=== PATIENT | female | born 1950 ===

== ENCOUNTER 2017-06-07 09:37 | Emergency (ER) | payer OTHER ==
[2017-06-07 09:53] VITALS: BMI 22.6
[2017-06-07 10:07] VITALS: PULSE 77; O2SAT 99
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
--- NOTE | 2017-06-07 11:36 | RAD ---
HISTORY: COMPARISON: 10/22/2013. TECHNIQUE: Chest PA and lateral FINDINGS: LINES AND TUBES: None. LUNG AND PLEURA: The lungs are well inflated and clear. HEART AND MEDIASTINUM: The heart is not enlarged. The hilar and mediastinal contours are within normal limits. SKELETAL STRUCTURES: The bony structures are within normal limits for the patient's age. VISUALIZED UPPER ABDOMEN: Normal. OTHER FINDINGS: None. IMPRESSION: No acute findings. Specifically, no evidence of pneumothorax.
[2017-06-07 11:52] VITALS: BP 132/75; RESP 20; TEMP 98.1
--- NOTE | 2017-06-07 15:46 | CARD ---
APPROVED REPORT EKG Measurement Heart [id number] <Conclusion> Normal sinus rhythm Minimal voltage criteria for LVH, may be normal variant Nonspecific T wave abnormality Abnormal ECG
== END 2017-06-07 11:57 | disposition home or self-care (01) ==
LOC: ED 09:37
DX: S20.219A Contusion of unspecified front wall of thorax, initial encounter (principal); Y04.2XXA Assault by strike against or bumped into by another person, initial encounter; Y92.238 Other place in hospital as the place of occurrence of the external cause; Y99.0 Civilian activity done for income or pay

== ENCOUNTER 2018-08-16 20:39 | Observation (INO) | payer MEDICARE, OTHER ==
[2018-08-16] MEDS ORDERED: Sodium Chloride 0.9% 1,000 ML IV STA (21:21)
--- NOTE | 2018-08-16 21:23 | ED PDOC ---
Arrival/HPI - General Chief Complaint: Abdominal Pain Time Seen by Provider: 08/16/18 20:40 Historian: Patient - History of Present Illness Narrative History of Present Illness (Text): 08/16/18 21:10 Pablo Robert is a 68 year old female, whose past medical history includes hypertension, Stage 1 ovarian cancer status post hysterectomy, oopherectomy, partial colectomy, cholecystectomy, and gastric ulcer, who presents to the ED complaining of abdominal pain since 15:00 after eating at restaurant. Patient reports associated nausea and multiple episodes of vomiting. Patient states she took Protonix earlier this afternoon, but vomited shortly after. Patient denies any fever, chills, chest pain, shortness of breath, diarrhea, urinary symptoms, back pain, neck pain, headache, dizziness, or any other complaints. Symptom Onset: Gradual Symptom Course: Unchanged Activities at Onset: Light Context: Home Past Medical History - Provider Review Nursing Documentation Reviewed: Yes - Infectious Disease Hx of Infectious Diseases: None - Reproductive Menopause: Yes - Cardiac Hx Cardiac Disorders: Yes Hx Hypertension: Yes - Pulmonary Hx Respiratory Disorders: No - Genitourinary/Gynecological Hx Ovarian Cancer: Yes - Psychiatric Hx Psychophysiologic Disorder: No Hx Substance Use: No - Surgical History Hx Cholecystectomy: Yes Hx Hysterectomy: Yes Other/Comment: partial colectomy - Anesthesia Hx Anesthesia: Yes Hx Anesthesia Reactions: No - Suicidal Assessment Feels Threatened In Home Enviroment: No Family/Social History - Physician Review Nursing Documentation Reviewed: Yes Family/Social History: Unknown Family HX Smoking Status: Never Smoked Hx Alcohol Use: No Hx Substance Use: No Allergies/Home Meds Allergies/Adverse Reactions: Allergies No Known Allergies Allergy (Verified 01/13/13 18:14) Home Medications: Home Meds Medication Instructions Recorded Confirmed Valsartan [Diovan] 160 mg PO DAILY 01/13/13 08/16/18 Ursodiol [Actigall] 1 tab PO WED 06/07/17 08/16/18 MetFORMIN [glucOPHAGE] 500 mg PO DAILY 08/16/18 08/16/18 Simvastatin [Zocor] 20 mg PO DAILY 08/16/18 08/16/18 amLODIPine [Norvasc] 10 mg PO DAILY 08/16/18 08/16/18 Review of Systems - Physician Review All systems were reviewed & negative as marked: Yes - Review of Systems Constitutional: Normal. absent: Fevers Eyes: Normal ENT: Normal Respiratory: Normal. absent: SOB, Cough Cardiovascular: Normal. absent: Chest Pain Gastrointestinal: Abdominal Pain, Nausea, Vomiting. absent: Diarrhea Genitourinary Female: Normal. absent: Dysuria, Frequency, Hematuria, Urine Output Changes Musculoskeletal: Normal. absent: Back Pain, Neck Pain Skin: Normal. absent: Rash Neurological: Normal. absent: Headache, Dizziness Endocrine: Normal Hemo/Lymphatic: Normal Psychiatric: Normal Physical Exam Vital Signs Reviewed: Yes Vital Signs Temp Pulse Resp BP Pulse Ox 08/16/18 20:43 98.4 F 104 H 18 129/81 96 Temperature: Afebrile Blood Pressure: Normal Pulse: Regular Respiratory Rate: Normal Appearance: Positive for: Well-Appearing, Non-Toxic, Comfortable Pain Distress: None Mental Status: Positive for: Alert and Oriented X 3 - Systems Exam Head: Present: Atraumatic, Normocephalic Pupils: Present: PERRL Extroacular Muscles: Present: EOMI Conjunctiva: Present: Normal Mouth: Present: Moist Mucous Membranes Neck: Present: Normal Range of Motion Respiratory/Chest: Present: Clear to Auscultation, Good Air Exchange. No: Respiratory Distress, Accessory Muscle Use Cardiovascular: Present: Regular Rate and Rhythm, Normal S1, S2. No: Murmurs Abdomen: No: Tenderness, Distention, Peritoneal Signs Back: Present: Normal Inspection Upper Extremity: Present: Normal Inspection. No: Cyanosis, Edema Lower Extremity: Present: Normal Inspection. No: Edema Neurological: Present: GCS=15, CN II-XII Intact, Speech Normal Skin: Present: Warm, Dry, Normal Color. No: Rashes Psychiatric: Present: Alert, Oriented x 3, Normal Insight, Normal Concentration Medical Decision Making ED Course and Treatment: 08/16/18 21:10 Impression: 68 year old female complaining of abdominal pain, nausea, and vomiting since 15:00. Plan: -- EKG -- Labs, lipase -- IV fluids -- Zofran -- Reassess and disposition Prior Visits: Notes and results from previous visits were reviewed. Progress Notes: Reviewed EKG, NSR at 93 bpm. Non-specific IVCD. Non-specific ST/T wave changes. 08/17/18 02:27 CT Abdomen and Pelvis: Fluid-filled, mildly dilated and thickened pelvic small bowel loops. Fluid-filled proximal colon. Prior cholecystectomy. Hepatic steatosis. Scattered simple hepatic cysts with the largest measuring 2.3 cm. Prior hysterectomy. Small sliding hiatal hernia. The liver is of uniform attenuation without mass or defect. There is no intra or extrahepatic biliary ductal dilatation. The spleen is normal. The gallbladder is within normal limits. The pancreas is of normal contour and attenuation characteristics. There is no evidence of adrenal mass. Both kidneys demonstrate prompt and equal nephrograms. The kidneys are normal in size, shape and configuration. There is no evidence of renal or ureteral mass. No renal or ureteral calculi are identified. There is no hydroureter or hydronephrosis. No evidence for appendicitis. There is no evidence of abdominal ascites or ly mphadenopathy. There is no evidence of intrinsic or extrinsic bladder mass. There is no pelvic ascites or lymphadenopathy. Images of the lung bases show no evidence of pleural or parenchymal mass. There are no pleural effusions. The bony structures are free of lytic or blastic lesions. IMPRESSION: Fluid-filled, mildly dilated and thickened pelvic small bowel loops. Ileus versus developing low grade partial bowel obstruction. Fluid-filled proximal colon. Prior cholecystectomy. Hepatic steatosis. Scattered simple hepatic cysts with the largest measuring 2.3 cm. Prior hysterectomy. Small sliding hiatal hernia. Electronically signed on Aug 17, 2018 2:10:46 AM EDT by: Mayda Ryan M.D., Certified by ABR, MSK, Neuroradiology 08/17/18 02:[address] Gerber, who is aware and agrees with plan. Accepts pt in to her service. Requests Dr. Bridges on consult.[employer] to Emergency department to evaluate patient.Agrees NPO/IV fluids/no NGT at this time. - Lab Interpretations I have reviewed the lab results: Yes - RAD Interpretation Bit Sharpener Operator: Radiologist - EKG Interpretation Interpreted by ED Physician: Yes Type: 12 lead EKG - Scribe Statement The provider has reviewed the documentation as recorded by the Destiney Andrews Provider Scribe Attestation: All medical record entries made by the Scribe were at my direction and personally dictated by me. I have reviewed the chart and agree that the record accurately reflects my personal performance of the history, physical exam, medical decision making, and the department course for this patient. I have also personally directed, reviewed, and agree with the discharge instructions and disposition. Disposition/Present on Arrival - Present on Arrival Any Indicators Present on Arrival: No History of DVT/PE: No History of Uncontrolled Diabetes: No Urinary Catheter: No History of Decub. Ulcer: No History Surgical Site Infection Following: None - Disposition Have Diagnosis and Disposition been Completed?: Yes Diagnosis: Partial small bowel obstruction Disposition: HOSPITALIZED Disposition Time: 02:51 Patient Problems: Current Active Problems Problem Status Onset Partial small bowel obstruction Acute Condition: STABLE
[2018-08-16 21:49] LABS: HEMOGLOBIN 13.7 g/dL (12.0-16.0); MEAN CELL VOLUME 87.3 fl (80.0-105.0); MEAN CORPUSCULAR HEMOGLOBIN 29.4 pg (25.0-35.0); MEAN CORPUSCULAR HGB CONC 33.7 g/dl (31.0-37.0); MEAN PLATELET VOLUME 9.7 fl (7.0-11.0); RBC 4.66 10^6/uL (3.5-6.1); RED CELL DISTRIBUTION WIDTH 12.4 % (11.5-14.5)
[2018-08-16 21:55] LABS: ALB/GLOB RATIO 1.2 (1.1-1.8); ALBUMIN 4.5 g/dL (3.0-4.8); ALT/SGPT 24 U/L (7-56); AST/SGOT 30 U/L (14-36); BLOOD UREA NITROGEN 11 mg/dL (7-21); CALCIUM 8.8 mg/dL (8.4-10.5); GFR NON-AFRICAN AMERICAN > 60; LIPASE 113 U/L (23-300)
[2018-08-17] MEDS ORDERED: Iohexol 350 MG/100 ML VIAL ONE (00:11)
[2018-08-17] MEDS ORDERED: cefTRIAXone 1 gm 1 GM/100 ML BAG IV STA (02:30)
[2018-08-17] MEDS ORDERED: metroNIDAZOLE IV 500 mg/100 ml 500 MG/100 ML BAG IV STA (02:30)
[2018-08-17] MEDS ORDERED: Sodium Chloride 0.9% 1,000 ML IV STA ×2 (02:53→03:36)
--- NOTE | 2018-08-17 03:43 | CP.PCM.CON ---
History of Present Illness - History of Present Illness History of Present Illness: Surgery Consult Note for Dr. Bridges Consult: partial SBO CC: Abdominal cramping, nausea, vomiting HPI: 68 year old female, past medical history significant for stage 1 ovarian carcinoma s/p hysterectomy w/ BSO and colon resection, presents to the emergency department with 1 day of nausea, vomiting, and diffuse abdominal pain after having [employer] for lunch around 3pm. Patient states from 3pm to 7pm she had several episodes of NBNB emesis leaving her feeling weak so she came to the ED. Admits to cramping abdominal pain that is intermittent, nonradiating. Nothing aggravates her symptoms. She has not tried anything to alleviate her symptoms. Patient had a BM last night, normal stool caliber, nonbloody. She is currently passing gas and no longer feels nauseated. Denies f/c, diarrhea, SOB, CP, or urinary symptoms. PMH: Ovarian carcinoma, constipation PSH: Hysterectomy+BSO, cholecystectomy FH: Noncontributory SH: Denies tobacco, alcohol, or drug use ALL: NKDA Meds: See MAR Review of Systems - Constitutional Constitutional: Weakness. absent: Chills, Fever - EENT Eyes: absent: Blurred Vision, Change in Vision Nose/Mouth/Throat: Dry Mouth. absent: Nasal Congestion, Nasal Discharge - Cardiovascular Cardiovascular: absent: Chest Pain, Dyspnea - Respiratory Respiratory: absent: Cough, Dyspnea, Hemoptysis - Gastrointestinal Gastrointestinal: Abdominal Pain, Constipation, Cramping, Nausea, Vomiting. absent: Change in Stool Character, Coffee Ground Emesis, Hematemesis, Melena - Genitourinary Genitourinary: absent: Difficulty Urinating, Dysuria - Musculoskeletal Musculoskeletal: absent: Back Pain, Neck Pain - Integumentary Integumentary: absent: Bleeding Lesions, Changing Lesions - Neurological Neurological: absent: Abnormal Hearing, Confusion - Psychiatric Psychiatric: absent: Anxiety, Depression Past Patient History - Infectious Disease Hx of Infectious Diseases: None - Past Social History Smoking Status: Never Smoked - CARDIAC Hx Cardiac Disorders: Yes Hx Hypertension: Yes - PULMONARY Hx Respiratory Disorders: No - GENITOURINARY/GYNECOLOGICAL Hx Ovarian Cancer: Yes - PSYCHIATRIC Hx Psychophysiologic Disorder: No Hx Substance Use: No - SURGICAL HISTORY Hx Cholecystectomy: Yes Hx Hysterectomy: Yes Other/Comment: partial colectomy - ANESTHESIA Hx Anesthesia: Yes Hx Anesthesia Reactions: No Meds Allergies/Adverse Reactions: Allergies Allergy/AdvReac Type Severity Reaction Status Date / Time No Known Allergies Allergy Verified 01/13/13 18:14 - Medications Medications: Current Medications Sodium Chloride (Sodium Chloride 0.9%) 1,000 mls @ 125 mls/hr IV .Q8H STA Stop: 08/17/18 10:52 Ondansetron HCl (Zofran Inj) 4 mg IVP Q6H PRN PRN Reason: Nausea/Vomiting Physical Exam - Constitutional Appears: Well, Non-toxic, No Acute Distress - Head Exam Head Exam: ATRAUMATIC, NORMAL INSPECTION, NORMOCEPHALIC - Eye Exam Eye Exam: EOMI Pupil Exam: PERRL - ENT Exam ENT Exam: Mucous Membranes Dry - Respiratory Exam Respiratory Exam: NORMAL BREATHING PATTERN. absent: Wheezes, Respiratory Distress - Cardiovascular Exam Cardiovascular Exam: REGULAR RHYTHM, +S1, +S2. absent: Tachycardia, Systolic Murmur - GI/Abdominal Exam GI & Abdominal Exam: Normal Bowel Sounds, Soft. absent: Distended, Guarding, Rebound, Tenderness - Rectal Exam Rectal Exam: absent: Bloody Stool - Back Exam Back exam: absent: CVA tenderness (L), CVA tenderness (R) - Neurological Exam Neurological exam: Alert, Oriented x3 - Psychiatric Exam Psychiatric exam: Normal Affect, Normal Mood - Skin Skin Exam: Dry, Intact, Normal Color, Warm Results - Vital Signs Recent Vital Signs: Last Vital Signs Temp 98.4 F 08/16/18 20:43 Pulse 73 08/17/18 02:57 Resp 15 08/17/18 02:57 BP 117/59 L 08/17/18 02:57 Pulse Ox 95 08/17/18 02:57 - Labs Result Diagrams: 08/16/18 21:30 08/16/18 21:30 Labs: Laboratory Results - last 24 hr 08/16/18 08/16/18 21:30 21:30 WBC 15.0 H RBC 4.66 Hgb 13.7 Hct 40.7 MCV 87.3 MCH 29.4 MCHC 33.7 RDW 12.4 Plt Count 276 MPV 9.7 Sodium 140 Potassium 3.8 Chloride 99 Carbon Dioxide 30 Anion Gap 15 BUN 11 Creatinine 0.5 L Est GFR ( Amer) > 60 Est GFR (Non-Af Amer) > 60 Random Glucose 248 H Calcium 8.8 Total Bilirubin 0.4 AST 30 ALT 24 Alkaline Phosphatase 105 Total Protein 8.2 Albumin 4.5 Globulin 3.7 Albumin/Globulin Ratio 1.2 Lipase 113 Assessment & Plan - Assessment and Plan (Free Text) Assessment: 68F w/ nausea, vomiting, abdominal pain likely 2/2 gastroenteritis CTAP shows diffuse intestinal wall thickening Plan: NPO IVF Antiemetics and analgesics PRN Ice chips for dry mouth Serial abdominal exams Strict Is and Os Will d/w Dr. Cyrus Zuluaga PGY1
[2018-08-17 04:29] VITALS: BMI 21.8
[2018-08-17] MEDS ORDERED: Pneumococcal 23-Valent Vaccine IM ONE (04:29)
[2018-08-17] MEDS ORDERED: Influenza Vaccine 60 mcg/0.5 mL SYR (4YR UP) IM ONE (04:29)
[2018-08-17 04:47] VITALS: RESP 18
[2018-08-17] MEDS ORDERED: Nitroglycerin 2% Ointment Foilpak UD TOP PRN (10:41)
[2018-08-17] MEDS ORDERED: Insulin Reg-LOW-Coverage SC SCH (11:30)
--- NOTE | 2018-08-17 11:32 | CT ---
Date of service: 08/17/2018 PROCEDURE: CT Abdomen and Pelvis with contrast HISTORY: abdominal pain COMPARISON: 07/22/2016 TECHNIQUE: Contrast dose: 100 mL Omnipaque 350 Radiation dose: Total exam DLP = 290.85 mGy-cm. This CT exam was performed using one or more of the following dose reduction techniques: Automated exposure control, adjustment of the mA and/or kV according to patient size, and/or use of iterative reconstruction technique. FINDINGS: LOWER THORAX: Unremarkable. LIVER: Normal size, contour and attenuation. There are 2 nonspecific low attenuations in the liver. In the dome of the left hepatic lobe there is a 1.8 cm vaguely rounded lesion and in the inferior right hepatic lobe there is a 1.1 cm vaguely rounded lesion. No other masses are identified. There is no biliary ductal dilatation. GALLBLADDER AND BILE DUCTS: Status post cholecystectomy. PANCREAS: Unremarkable. No gross lesion or ductal dilatation. SPLEEN: Unremarkable. ADRENALS: Unremarkable. No mass. KIDNEYS AND URETERS: Unremarkable. No hydronephrosis. No solid mass. VASCULATURE: Unremarkable. No aortic aneurysm. There is atherosclerotic calcification of the abdominal aorta. BOWEL: There is mural thickening and mural enhancement of multiple small bowel loops in the left lower quadrant and pelvis consistent with a nonspecific enteritis. There is no bowel obstruction. There are no other abnormal bowel loops identified. APPENDIX: Normal appendix. PERITONEUM: Unremarkable. No free fluid. No free air. LYMPH NODES: Unremarkable. No enlarged lymph nodes. BLADDER: Unremarkable. REPRODUCTIVE: Status post hysterectomy BONES: No acute fracture. OTHER FINDINGS: None. IMPRESSION: Nonspecific enteritis involving multiple loops of small bowel in the left lower quadrant and pelvis. Two nonspecific rounded low-attenuation hepatic masses unchanged from 07/22/2016. Status post hysterectomy and cholecystectomy. No other significant abnormality.
[2018-08-17 12:26] LABS: HEMOGLOBIN 12.6 g/dL (12.0-16.0); MEAN CELL VOLUME 87.5 fl (80.0-105.0); MEAN CORPUSCULAR HEMOGLOBIN 29.2 pg (25.0-35.0); MEAN CORPUSCULAR HGB CONC 33.3 g/dl (31.0-37.0); MEAN PLATELET VOLUME 9.8 fl (7.0-11.0); RBC 4.32 10^6/uL (3.5-6.1); RED CELL DISTRIBUTION WIDTH 12.6 % (11.5-14.5); WHITE BLOOD COUNT 8.5 10^3/uL (4.5-11.0)
--- NOTE | 2018-08-17 14:46 | CP.PCM.PCO ---
Additional Comments - Additional Comments Additional Comments: Gastritis/Enteritis, CT abdomen/pelvis showed questionable lesion, h/o ovarian CA, Liver US pending result lesion vs cyst, currently on liquid diet will advance slowly as per surgery, repeat labs in am, reeval in am, for possible DC 08/18/18.
--- NOTE | 2018-08-17 15:00 | US ---
Date of service: 08/17/2018 HISTORY: compare to ct COMPARISON: None. TECHNIQUE: Sonographic evaluation of the right upper quadrant of the abdomen. FINDINGS: LIVER: Measures 15.9 cm in length. Diffusely increased echogenicity of the liver parenchyma. Consistent with fatty infiltration. Smooth contour. Simple cyst in right lobe, 1.0 x 1.3 x 1.3 cm. No solid mass. No biliary dilatation. GALLBLADDER: Status post cholecystectomy COMMON BILE DUCT: Measures 7 mm. No stones. No dilatation. PANCREAS: Unremarkable as visualized. No mass. No ductal dilatation. RIGHT KIDNEY: Measures 9.5 cm in length. Normal echogenicity. No calculus, mass, or hydronephrosis. AORTA: No aneurysmal dilatation. IVC: Unremarkable. OTHER FINDINGS: None . IMPRESSION: 13 mm simple cyst in right lobe of liver. Please note that the right lobe cyst corresponds to low-density mass identified on CT examination of the same date. A low-density mass seen in the dome of the left hepatic lobe on CT examination is not demonstrated on this ultrasound examination.
--- NOTE | 2018-08-17 15:15 | CARD ---
APPROVED REPORT Date of service: 08/16/2018 EKG Measurement Heart [id number] <Conclusion> Normal sinus rhythm Left Bundle Branch Block Abnormal ECG
--- NOTE | 2018-08-17 15:23 | CP.PCM.PCO ---
Physician Communication Note - Physician Communication Note Physician Communication Note: cleared by Dr. Bridges for D/C home.
[2018-08-17 15:45] VITALS: BP 110/59; PULSE 69; TEMP 98.5; O2SAT 98
--- NOTE | 2018-08-17 22:43 | HP ---
DATE OF EXAM: 08/17/2018 HISTORY OF PRESENT ILLNESS: This 68-year-old female who was examined at her bedside on the morning of 08/17/2018, present for the interview with her sister. The patient is a 68-year-old female with history of stage I ovarian cancer, status post partial colectomy and ovary resection in 07/2016. The patient presents to the [facility] ER last evening complaining of abdominal pain associated with nausea and multiple episodes of vomiting. The patient took Protonix, vomited subsequently, and presented to ER for further evaluation of the above. While in the emergency room, she had an abdominal pelvic CT that was reviewed showed her liver normal in size and attenuation. She is status post cholecystectomy. Her pancreas was unremarkable and her bowel showed mural thickening with multiple small bowel loops in the left lower quadrant consistent with a nonspecific enteritis with no evidence of bowel obstruction and that the patient is status post hysterectomy. The patient was seen by Dr. Nikolas Bridges and was ordered to have clear liquid. She states she has had a bowel movement this morning and on further questioning of the patient is a nondrinker, nonsmoker, non IV drug misuser. 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 The patient was seen earlier this morning by the surgical team who recommended IV fluids, ice chips, serial abdominal exams, and will pursue their further workup as indicated. REVIEW OF SYSTEMS: CONSTITUTIONAL: No fever. No chills. HEAD: No headache. No seizures. EYES: No change in visual acuity. EARS: No hearing loss. THROAT: No swallowing difficulty. NECK: No stiffness. CARDIAC REVIEW: She has a history of hypertension. GASTROINTESTINAL: History of gallstones. PULMONARY: No hemoptysis. VASCULAR: No claudication. PSYCHOLOGICAL: No depression. NEUROLOGICAL: No stroke. GYNECOLOGICAL: Ovarian cancer resection with partial colectomy. OUTPATIENT MEDICATIONS: Norvasc, Actigall, Glucophage, Zocor, and Diovan. FAMILY HISTORY: Noncontributory. PHYSICAL EXAMINATION: VITAL SIGNS: Temperature 98.2, respirations 18, pulse 81, blood pressure 128/71, and pulse ox 95%. HEENT: Head: Normocephalic and atraumatic. Eyes: No icterus. Ears: Clear. Throat: Noninjected. NECK: Supple. HEART: S1 and S2. LUNGS: Clear. ABDOMEN: Soft. No rebound. No guarding. No tenderness. EXTREMITIES: No edema. SKIN: Without rash. NEUROLOGICAL: Intact. PSYCHOLOGICAL: Alert. VASCULAR: Legs warm to touch. LABORATORY DATA: White count 15,000, hemoglobin 13.7, hematocrit 40.7, and platelets 276,000. Sodium 140, K 3.8, chloride 99, bicarb 30, BUN 11, creatinine 0.5, random blood sugar 147, calcium 8.8, and bilirubin 0.4. AST 30, ALT 24, alk phos 105, and lipase 113. IMPRESSION AND PLAN: A 68-year-old female with gastroenteritis, chronic hypertension, history of gallstones, hyperlipidemia, now with bowel movement and improved gastrointestinal symptomatology. The patient will continue on insulin coverage, nitroglycerin p.r.n., hypertension and Zofran p.r.n. nausea and vomiting. She will have a basic metabolic panel and CBC ordered for the a.m. Blood cultures have been received. She did receive Rocephin and Flagyl in the ER. She has been started on a liquid diet by Surgery and ice chips p.r.n. Based on her clinical progress, additional diagnostic workup and testing will be entertained. Greater than 75 minutes were spent in the care management, review of labs orders, CAT scans, x-rays and discussion of this patient with herself, surgery, nursing, and family at bedside. All questions were answered. Lida Gerber MD [facility]
--- NOTE | 2018-08-18 22:03 | DS ---
FINAL DIAGNOSES: Gastroenteritis, resolved. Chronic hypertension, gallstones, hyperlipidemia, status post ovary and colon resection for ovarian cancer. Follow up with her PMD in 48 hours. DISCHARGE DIET: Soft, bland. DISCHARGE MEDICATIONS: Norvasc 10 mg p.o. daily, Actigall 1 tablet p.o. Friday as directed by PMD, Glucophage 500 mg p.o. daily, Zocor 20 mg p.o. daily, and Diovan 160 mg p.o. daily. CONSULTATIONS: Dr. Nikolas Bridges, who cleared the patient for discharge. HOSPITAL COURSE: Summary, this 68-year-old female who was admitted for nausea and vomiting underwent diagnostic workup including laboratory testing and abdominal and pelvic CT which was remarkable for gastroenteritis. The patient was seen in consultation by Dr. Nikolas Bridges, who cleared the patient for discharge and the patient was advised to follow up with her PMD within 48 hours for further evaluation of all of the above at the time of her discharge. Her temperature was 98.5, respirations 18, pulse 69, and blood pressure 110/59 with a pulse ox of 98%. White count 8500, hemoglobin 12.6, hematocrit 37.8, and platelets 243,000. Sodium 140, K of 3.8, chloride 99, bicarb 30, BUN 11, creatinine 0.5, random blood sugar 147, and calcium 8.8. Bilirubin 0.4, AST 30, ALT 24, and alk phos 105. CT of abdomen and pelvis showed no evidence of bowel obstruction and abdominal ultrasound was reviewed and showed 13 mm simple cyst in her right lobe of the liver which corresponded to the low density mass identified on her CT exam of the same day. The patient was insistent on discharge, was advised for any change in signs and symptoms to represent to the [facility] ER, was advised to follow up bland diet and was officially cleared for discharge by Dr. Nikolas Bridges from Surgery. She will follow up with her PMD and her oncologist after discharge. Lida Gerber MD [facility]
== END 2018-08-17 17:11 | disposition home or self-care (01) ==
LOC: ED 20:39 → ERH 08-17 02:52 → 5RSO 08-17 03:57 → INTOOBSV 08-17 10:42 → OBSVTOIN 08-17 10:42
PROVIDERS: ADMIT Internal Medicine; ATTEND Internal Medicine
DX: K52.9 Noninfective gastroenteritis and colitis, unspecified (principal); I10 Essential (primary) hypertension; E78.5 Hyperlipidemia, unspecified; Z85.43 Personal history of malignant neoplasm of ovary; K76.0 Fatty (change of) liver, not elsewhere classified; K76.89 Other specified diseases of liver; K44.9 Diaphragmatic hernia without obstruction or gangrene; Z90.710 Acquired absence of both cervix and uterus
CPT/HCPCS: 36415; 74177; 76705; 80053; 82948; 83690; 85027; 87040; 93005; 96361; 96365; 96375; 99285; G0378; J0696; J2405; J7030; Q9967